=== PATIENT | female | born 1960 | race Caucasian/White ===

== ENCOUNTER 2017-02-13 05:42 | Inpatient (IN) | payer OTHER ==
[~2017-02-13] VITALS: Ht 157.5 cm; Wt 96.1 kg
[~2017-02-13 05:42] MED LIST: ACID1TAB PO; ALOE5POW2 TP; AMIT25TA PO; AMIT50TA PO; ASCO1TAB2 PO; ASPI-496 PO; BIOT25004 PO; BUPR150T13 PO; CALC600T4 PO; CELE200C PO; CHOL200024 PO; CITA40TA5 PO; CYCL5TAB PO; ESTR1PAT13 TP; ESTR1PAT79 TD; FLAXSEED PO; FOLI0.8T2 PO; GLUC1500 PO; LEVO75TA PO; LEVO88TA2 PO; LIOT5TAB6 PO; LIPA1CAP6 PO; METH500C3 PO; METO-93 PO; METO50TA82 PO; MULT1TAB60 PO; OMEG1CAP35 PO; OMEGA PO; OXYC5CAP4 PO; PANT40TA5 PO; PAPA1TAB8 PO; S-AD400T3 PO; TRAM50TA2 PO; [UNRECOGNIZED DRUG - CODE] PO
[2017-02-13] MEDS ORDERED: VANCOMYCIN PER PHARMACY MC STA (06:15)
[2017-02-13] MEDS ORDERED: VANCOMYCIN 1,400 MG in SODIUM CHLORIDE 0.9% 250 ML IV ONE (06:30)
[2017-02-13] MEDS ORDERED: LACTATED RINGERS 1,000 ML IV SCH (06:34)
[2017-02-13 06:41] VITALS: BP 126/81
[2017-02-13] MEDS ORDERED: TRANEXAMIC ACID 100 MG/ML, 10ML ONE (06:45)
[2017-02-13] MEDS ORDERED: KETOROLAC 60 MG/2 ML ONE (06:45)
[2017-02-13] MEDS ORDERED: ROPIvacaine/PF 0.2%, 20 ML ONE (06:45)
[2017-02-13] MEDS ORDERED: EPINEPHRINE 1 MG/ML, 1ML ONE (06:45)
[2017-02-13] MEDS ORDERED: KETAMINE 10 MG/ML, 20ML ONE (06:46)
[2017-02-13] MEDS ORDERED: FENTANYL PF 250 MCG/5ML ONE (06:46)
[2017-02-13] MEDS ORDERED: MIDAZOLAM 1 MG/ML, 2ML ONE (06:46)
[2017-02-13] MEDS ORDERED: BUPIVACAINE/PF-EPI 0.25% 1:200K ONE (06:52)
[2017-02-13] MEDS ORDERED: CEFAZOLIN 1,000 MG ONE (07:38)
[2017-02-13] MEDS ORDERED: PHENYLEPHRINE 10 MG/ML ONE (07:38)
[2017-02-13] MEDS ORDERED: DEXAMETHASONE 4 MG/ML, 1ML ONE (07:38)
[2017-02-13] MEDS ORDERED: PROPOFOL 10 MG/ML, 20ML ONE (07:38)
[2017-02-13] MEDS ORDERED: EPHEDRINE 50 MG/ML, 1ML ONE (07:38)
[2017-02-13] MEDS ORDERED: SODIUM CHLORIDE 0.9% 50 ML ONE (08:05)
[2017-02-13] MEDS ORDERED: PROMETHAZINE 25 MG/ML, 1ML IV PRN (08:30)
[2017-02-13] MEDS ORDERED: ONDANSETRON 2MG/ML, 2ML IVPush PRN (08:30)
[2017-02-13] MEDS ORDERED: MEPERIDINE/PF 25MG/0.5ML IVPush PRN (08:30)
[2017-02-13] MEDS ORDERED: hydrALAzine 20 MG/ML, 1ML IV PRN (08:30)
[2017-02-13] MEDS ORDERED: LABETALOL 5MG/ML, 20ML IV PRN (08:30)
[2017-02-13] MEDS ORDERED: FENTANYL PF 100 MCG/2ML IV PRN (08:30)
[2017-02-13] MEDS ORDERED: ACETAMINOPHEN 325 MG TABLET PO PRN (08:30)
[2017-02-13] MEDS ORDERED: OXYcodone 5 MG/5 ML ORAL.SOL UDC PO PRN (08:30)
[2017-02-13] MEDS ORDERED: HYDROmorphone 1 MG/ML, 1ML IV PRN ×2 (08:30→09:30)
[2017-02-13] MEDS ORDERED: MAGNESIUM HYDROXIDE 8%, 30ML UDC PO PRN (09:30)
[2017-02-13] MEDS ORDERED: DIPHENHYDRAMINE 50 MG CAPSULE PO PRN (09:30)
[2017-02-13] MEDS ORDERED: OXYcodone IR 5MG TABLET PO PRN (09:30)
[2017-02-13] MEDS ORDERED: SENNA/DOCUSATE TABLET PO PRN (09:30)
[2017-02-13] MEDS ORDERED: PROMETHAZINE 12.5 MG SUPP PR PRN (09:30)
[2017-02-13] MEDS ORDERED: ZOLPIDEM 5MG TABLET PO PRN (09:30)
[2017-02-13] MEDS ORDERED: BISACODYL 10 MG SUPP PR PRN (09:30)
[2017-02-13] MEDS ORDERED: ONDANSETRON 4 MG TABLET PO PRN (09:30)
[2017-02-13] MEDS ORDERED: TRANEXAMIC ACID 1,000 MG in SODIUM CHLORIDE 0.9% 100 ML IVPB ONE (09:30)
[2017-02-13] MEDS ORDERED: ALUMINUM/MAG/SIMETHICONE 30 ML UDC PO PRN (09:30)
[2017-02-13] MEDS ORDERED: HYDROcodone/APAP 10/325 MG TABLET PO PRN (09:30)
[2017-02-13] MEDS ORDERED: DIAZEPAM 5 MG TABLET PO PRN (09:30)
[2017-02-13] MEDS ORDERED: SCOPOLAMINE PATCH, 1.5MG PATCH.TD72 TD SCH (09:30)
[2017-02-13] MEDS ORDERED: PROMETHAZINE 25 MG/ML, 1ML IM PRN (09:30)
[2017-02-13] MEDS ORDERED: ONDANSETRON 2MG/ML, 2ML IV PRN (09:30)
[2017-02-13] MEDS ORDERED: OXYcodone 5 MG/5 ML ORAL.SOL UDC ONE (10:24)
[2017-02-13] MEDS: TAMSULOSIN 0.4 MG CAP.ER.24H PO SCH (12:09)
[2017-02-13] MEDS: D5%-0.45% NACL 1,000 ML IV SCH ×3 (12:10→20:42)
[2017-02-13 14:44] VITALS: BP 129/74
[2017-02-13] MEDS: OXYcodone IR 5MG TABLET PO SCH ×3 (14:49→22:34)
[2017-02-13] MEDS: ACETAMINOPHEN 650 MG/20.3 ML UDC PO SCH ×3 (14:49→22:34)
[2017-02-13] MEDS: CEFAZOLIN PMX 2GM/100ML 100 ML IVPB SCH ×2 (14:50→22:34)
[2017-02-13 19:38] VITALS: BP 122/60
[2017-02-13] MEDS: PREGABALIN 75 MG CAPSULE PO SCH (20:26)
[2017-02-13] MEDS: DOCUSATE 100 MG CAPSULE PO SCH (20:26)
[2017-02-13 23:43] VITALS: BP 121/59
[2017-02-14] MEDS: OXYcodone IR 5MG TABLET PO SCH ×5 (02:30→16:17)
[2017-02-14] MEDS: ACETAMINOPHEN 650 MG/20.3 ML UDC PO SCH ×5 (02:30→16:17)
[2017-02-14] MEDS: D5%-0.45% NACL 1,000 ML IV SCH ×2 (03:23→11:17)
[2017-02-14 04:15] VITALS: BP 125/65
[2017-02-14 05:41] LABS: HEMOGLOBIN 12.7 g/dL (11.7-16.4)
[2017-02-14] MEDS ORDERED: ASPIRIN 81 MG TABLET EC PO SCH (06:00)
[2017-02-14] MEDS ORDERED: DEXAMETHASONE 4 MG/ML, 1ML IVPush SCH (06:00)
[2017-02-14] MEDS: DOCUSATE 100 MG CAPSULE PO SCH (08:22)
[2017-02-14] MEDS: PREGABALIN 75 MG CAPSULE PO SCH (08:22)
[2017-02-14] MEDS: TAMSULOSIN 0.4 MG CAP.ER.24H PO SCH (08:22)
[2017-02-14 08:25] VITALS: BP 119/58
[2017-02-14] MEDS ORDERED: MULTIVITAMINS/MINERALS TABLET PO SCH (09:00)
[2017-02-14] MEDS ORDERED: KETOROLAC 30 MG/1 ML IV SCH (09:30)
[2017-02-14 16:11] VITALS: BP 115/70
== END 2017-02-14 16:35 | disposition home or self-care (01) | DRG 470 ==
LOC: ORIP 05:42 → 4NOR 10:33
PROVIDERS: ADMIT Orthopaedic Surgery; ATTEND Orthopaedic Surgery
PROC: 0SRC0J9 Replacement of Right Knee Joint with Synthetic Substitute, Cemented, Open Approach (ICD-10-PCS; principal; 2017-02-13 07:30)
DX: M17.11 Unilateral primary osteoarthritis, right knee (principal); K21.9 Gastro-esophageal reflux disease without esophagitis; I10 Essential (primary) hypertension; E03.9 Hypothyroidism, unspecified; F32.9 Major depressive disorder, single episode, unspecified; F41.9 Anxiety disorder, unspecified
CPT/HCPCS: 36415; 85014; 85018; C1713; J0171; J0690; J1100; J1170; J1885; J2250; J2704; J2795; J3010; J3370; C1776; J2370; J7050; J7120

== ENCOUNTER → 2017-06-28 | Outpatient (CLI) | payer OTHER ==
[~2017-06-28] MED LIST changes: -BIOT25004 PO; +BIOT25005 PO; +LIOT5TAB10 PO; -LIOT5TAB6 PO; -LIPA1CAP6 PO; +LIPA1CAP61 PO; +OMEG-158 PO; -OMEG1CAP35 PO; +OXYC5CAP2 PO; -OXYC5CAP4 PO
== END | disposition home or self-care (01) ==
LOC: CFH 14:47
PROVIDERS: ATTEND Internal Medicine
DX: I08.0 Rheumatic disorders of both mitral and aortic valves (principal); I10 Essential (primary) hypertension; Z87.891 Personal history of nicotine dependence
CPT/HCPCS: 93306

== ENCOUNTER 2017-08-13 10:21 | Emergency (ER) | payer OTHER ==
[~2017-08-13] VITALS: Ht 160 cm; Wt 85.9 kg
[2017-08-13] MEDS ORDERED: ONDANSETRON 2MG/ML, 2ML IVPush ONE (11:00)
[2017-08-13] MEDS ORDERED: SODIUM CHLORIDE 0.9% 1,000ML IVBOLUS ONE (11:00)
[2017-08-13 11:22] LABS: HEMATOCRIT 45.8 % (34.6-47.8); HEMOGLOBIN 15.9 g/dL (11.7-16.4); WHITE BLOOD COUNT 3.5 x10^3/uL (3.4-10)
[2017-08-13 11:25] LABS: BLOOD UREA NITROGEN 7 mg/dL (7-18)
[2017-08-13 11:28] LABS: ASPARTATE AMINO TRANSFERASE 21 U/L (15-37)
[2017-08-13 11:29] LABS: DIFF TOTAL CELLS COUNTED 100 CELL DIFF
[2017-08-13 12:06] LABS: VERIFY COUNTS? YES
[2017-08-13 13:35] VITALS: BP 141/60
== END 2017-08-13 13:41 | disposition home or self-care (01) ==
LOC: ED 12:11
DX: R19.7 Diarrhea, unspecified (principal); K21.9 Gastro-esophageal reflux disease without esophagitis; E03.9 Hypothyroidism, unspecified; Z90.710 Acquired absence of both cervix and uterus; F17.210 Nicotine dependence, cigarettes, uncomplicated
CPT/HCPCS: 36415; 76700; 80053; 83690; 85025; 87046; 87324; 87899; 89055; 99285

== ENCOUNTER → 2018-12-11 | Outpatient (CLI) | payer OTHER ==
[~2018-12-11] MED LIST changes: -GLUC1500 PO; +GLUC15006 PO
== END | disposition home or self-care (01) ==
LOC: CFH 10:29
PROVIDERS: ATTEND Internal Medicine
DX: Z12.31 Encounter for screening mammogram for malignant neoplasm of breast (principal); I10 Essential (primary) hypertension; E78.2 Mixed hyperlipidemia; R42 Dizziness and giddiness
CPT/HCPCS: 76536; 93880; 77067